=== PATIENT | female | born 1955 ===

== ENCOUNTER 2017-04-14 19:01 | Emergency (ER) | payer MEDICAID ==
--- NOTE | 2017-05-16 18:45 | ER ---
ADMIT: 04/14/2017 RM/LOC: ER [facility] MR#: [id number] [address] [id number] GENNA MACK [address] [place] [address] Emergency Room Report SEX: F AGE: 62 : 1955 DATE: 04/14/2017 ADDENDUM: This patient comes to the ER because she has had dizziness today. She does have a history of having dizziness. She was given meclizine, she took it and she felt better, but it came on so suddenly today she would like to be checked out. She denies any pain. She does appear to be slightly dehydrated. CBC and CMP were normal. Urine showed 2+ leukocyte esterase. DIAGNOSES: 1. Dizziness. 2. Urinary tract infection. DISCUSSION: In the emergency room, she was given Valium and Bactrim. She did keep fluids down without any difficulty. She was feeling better. We will have her continue with the Bactrim, increase fluids, and follow up with her primary as needed. Please see my T-sheet. JUSTIN Chadwick / Pradeep Arroyo MD / baldemar JOB #: [id number] CC: Pradeep Arroyo MD, Attending Physician Jeet Rubi MD, Family Physician
== END 2017-04-14 20:58 | disposition home or self-care (01) ==
LOC: ER 19:01
DX: R42 Dizziness and giddiness (principal); N39.0 Urinary tract infection, site not specified; I10 Essential (primary) hypertension; E11.9 Type 2 diabetes mellitus without complications; Z79.82 Long term (current) use of aspirin; Z79.899 Other long term (current) drug therapy

== ENCOUNTER → 2017-04-18 | Outpatient (CLI) | payer MEDICAID | END | disposition home or self-care (01) | LOC: RAD.S 04-16 17:29 | DX: I10 Essential (primary) hypertension (principal); G45.9 Transient cerebral ischemic attack, unspecified; G45.0 Vertebro-basilar artery syndrome; E08.39 Diabetes mellitus due to underlying condition with other diabetic ophthalmic complication; H83.09 Labyrinthitis, unspecified ear; G93.89 Other specified disorders of brain ==